=== PATIENT | female | born 1935 | race Two or more races ===

== ENCOUNTER 2019-09-13 15:16 | Emergency (ER) | payer MEDICARE, OTHER ==
[~2019-09-13] VITALS: Ht 157.5 cm; Wt 68.0 kg
[2019-09-13 16:02] LABS: Basophils # (auto) 0 10 ^3/uL (0-0.2); Basophils % (auto) 0.4 % (0.0-2.0); Eosinophils # (auto) 0.5 10 ^3/uL (0-0.8); Eosinophils % (auto) 6.3 % (0.0-7.0); Hematocrit 39.1 % (36.0-46.0); Lymphocytes # (auto) 2.5 10 ^3/uL (0.4-5.4); Lymphocytes % (auto) 32.5 % (10.0-50.0); Mean Corpuscular Hemoglobin 31.1 pg (28.0-32.0); Mean Corpuscular Hgb Conc. 33.2 g/dL (32.0-36.0); Mean Corpuscular Volume 93.9 fL (80.0-100.0); Monocytes # (auto) 0.7 10 ^3/uL (0-1.3); Monocytes % (auto) 9.5 % (0.0-12.0); Neutrophils % (auto) 51.3 % (37.0-80.0); Nucleated Red Blood Cells % 0.1 %; Platelet Count (auto) 275 10^3/uL (140-450); Red Blood Cells 4.17 10^6/uL (4.0-5.20); Red Cell Distribution Width 13.3 % (11.8-14.3); White Blood Cell 7.8 10^3/uL (4.4-10.8)
[2019-09-13 16:16] LABS: INR 1.09 (0.9-1.15); Partial Thromboplastin Time 28.2 sec (23.64-32.05)
[2019-09-13 16:38] LABS: Alanine Aminotransferase 21 U/L (13-56); Alkaline Phosphatase 170 U/L (45-117); Anion Gap 5 (5-15); Aspartate Aminotransferase 37 U/L (15-37); BUN/Creatinine Ratio 11.6; Blood Urea Nitrogen 15 mg/dL (7-18); Calcium 8.9 mg/dL (8.5-10.1); Carbon Dioxide 28 mmol/L (21-32); Chloride 105 mmol/L (98-107); GFR African American 51 mL/min; GFR Non-African American 42 mL/min; Glucose 127 mg/dL (74-106); Sodium 138 mmol/L (136-145)
[2019-09-13 16:39] LABS: Albumin 2.8 g/dL (3.4-5.0); Bilirubin, Total 0.6 mg/dL (0.2-1.0); CRP High Sensitivity 0.756 mg/dL (< 0.3); Lactate Dehydrogenase 458 U/L (84-246); Total Protein 7.3 g/dL (6.4-8.2)
[2019-09-13 18:37] LABS: Urine Bacteria MANY /hpf (None Seen); Urine Blood Negative /uL (Negative); Urine Hyaline Cast FEW /lpf (0 - 2); Urine Mucus FEW (None Seen); Urine Specific Gravity 1.016 (1.001-1.035); Urine WBC 118 /hpf (0 - 5)
[2019-09-13] MEDS ORDERED: cefTRIAXone 1GM/50ML D5W 50 ML IV ONE (19:00)
[2019-09-14 03:30] VITALS: BP 137/47
== END 2019-09-14 03:44 | disposition home or self-care (01) ==
LOC: ER 15:16 → EDBD 15:16 → ER 09-14 03:44
DX: E86.0 Dehydration (principal); Z20.828 Contact with and (suspected) exposure to other viral communicable diseases; F41.9 Anxiety disorder, unspecified; E44.0 Moderate protein-calorie malnutrition; R10.2 Pelvic and perineal pain; Z68.29 Body mass index [BMI] 29.0-29.9, adult
CPT/HCPCS: 36415; 71045; 72170; 80053; 81001; 82728; 83615; 83880; 84484; 85025; 85610; 85730; 86141; 96365; 99285; C9803; J0696; U0003

== ENCOUNTER 2021-03-31 16:47 | Inpatient (IN) | payer MEDICARE, OTHER ==
[~2021-03-31] VITALS: Ht 165.1 cm; Wt 52.0 kg
[2021-03-31 18:04] LABS: Basophils # (auto) 0 10 ^3/uL (0-0.2); Basophils % (auto) 0.3 % (0.0-2.0); Eosinophils # (auto) 0.8 10 ^3/uL (0-0.8); Eosinophils % (auto) 8.5 % (0.0-7.0); Hematocrit 39.5 % (36.0-46.0); Hemoglobin 13.2 g/dL (12.2-16.2); Lymphocytes # (auto) 2.6 10 ^3/uL (0.4-5.4); Lymphocytes % (auto) 27.9 % (10.0-50.0); Mean Corpuscular Hemoglobin 30.8 pg (28.0-32.0); Mean Corpuscular Hgb Conc. 33.5 g/dL (32.0-36.0); Monocytes # (auto) 0.7 10 ^3/uL (0-1.3); Monocytes % (auto) 7.7 % (0.0-12.0); Neutrophils # (auto) 5.3 10 ^3/uL (1.6-8.6); Neutrophils % (auto) 55.6 % (37.0-80.0); Red Cell Distribution Width 13.5 % (11.8-14.3); White Blood Cell 9.5 10^3/uL (4.4-10.8)
[2021-03-31 18:11] LABS: Albumin 3.4 g/dL (3.4-5.0); Calcium 9.8 mg/dL (8.5-10.1); Potassium 4.2 mmol/L (3.5-5.1)
[2021-03-31 18:16] LABS: BUN/Creatinine Ratio 16.5; Bilirubin, Total 0.6 mg/dL (0.2-1.0); Total Protein 8.5 g/dL (6.4-8.2)
[2021-04-01 14:01] LABS: Urine Bacteria MANY /hpf (None Seen); Urine Blood Negative /uL (Negative); Urine Mucus FEW (None Seen); Urine Specific Gravity 1.015 (1.001-1.035); Urine WBC 256 /hpf (0 - 5)
[2021-04-01 14:11] LABS: Amphetamine Screen, Urine NEGATIVE (NEGATIVE); Barbiturate Scree,Urine NEGATIVE (NEGATIVE); Benzodiazephine Screen, Urine NEGATIVE (NEGATIVE); Cannabinoid Screen, Urine NEGATIVE (NEGATIVE); Cocaine Screen, Urine NEGATIVE (NEGATIVE); Opiate Scree,Urine NEGATIVE (NEGATIVE); Phencyclidine Screen, Urine NEGATIVE (NEGATIVE)
[2021-04-01] MEDS ORDERED: cefTRIAXone 1GM/50ML D5W 50 ML IV ONE (18:15)
[2021-04-01] MEDS ORDERED: ONDANSETRON HCL 4 MG/2 ML VIAL IV PRN (20:45)
[2021-04-01 22:22] LABS: Calcium 9.2 mg/dL (8.5-10.1); Potassium 4.1 mmol/L (3.5-5.1)
[2021-04-01 22:28] LABS: BUN/Creatinine Ratio 16.1
[2021-04-02 00:34] VITALS: BP 138/60
[2021-04-02 00:47] VITALS: BP 130/60
[2021-04-02] MEDS ORDERED: INFLUENZA QUAD 2021-2022 0.5 ML SYRG IM ONE (01:00)
[2021-04-02] MEDS ORDERED: PNEUMOCOCCAL VACC POLYS 25 MCG/0.5 ML VIAL IM ONE (01:00)
[2021-04-02] MEDS ORDERED: LEVO25TA6 PO (01:01)
[2021-04-02] MEDS ORDERED: DULO20CA PO (01:01)
[2021-04-02] MEDS ORDERED: QUET25TA37 PO (01:01)
[2021-04-02] MEDS ORDERED: MULT-1058 PO (01:01)
[2021-04-02 04:50] VITALS: BP 140/62
[2021-04-02 08:12] LABS: Basophils # (auto) 0.1 10 ^3/uL (0-0.2); Basophils % (auto) 1.2 % (0.0-2.0); Eosinophils # (auto) 0.6 10 ^3/uL (0-0.8); Eosinophils % (auto) 6.1 % (0.0-7.0); Hematocrit 39.2 % (36.0-46.0); Hemoglobin 13.2 g/dL (12.2-16.2); Lymphocytes # (auto) 1.6 10 ^3/uL (0.4-5.4); Lymphocytes % (auto) 15.9 % (10.0-50.0); Mean Corpuscular Hemoglobin 30.8 pg (28.0-32.0); Mean Corpuscular Hgb Conc. 33.6 g/dL (32.0-36.0); Mean Corpuscular Volume 91.7 fL (80.0-100.0); Monocytes # (auto) 0.7 10 ^3/uL (0-1.3); Monocytes % (auto) 6.8 % (0.0-12.0); Neutrophils # (auto) 7.1 10 ^3/uL (1.6-8.6); Red Blood Cells 4.27 10^6/uL (4.0-5.20); Red Cell Distribution Width 13.7 % (11.8-14.3); White Blood Cell 10.1 10^3/uL (4.4-10.8)
[2021-04-02 08:30] VITALS: BP 134/58
[2021-04-02 08:32] LABS: Potassium 4.3 mmol/L (3.5-5.1)
[2021-04-02] MEDS: cefTRIAXone 1GM/50ML D5W 50 ML IV SCH (08:37)
[2021-04-02 08:50] LABS: BUN/Creatinine Ratio 18.4; Calcium 9.2 mg/dL (8.5-10.1)
[2021-04-02] MEDS ORDERED: LEVOTHYROXINE SODIUM 25 MCG TAB PO ONE (11:15)
[2021-04-02 22:58] VITALS: BP 139/67
[2021-04-03 05:29] VITALS: BP 129/60
[2021-04-03] MEDS ORDERED: LEVOTHYROXINE SODIUM 25 MCG TAB PO SCH (07:00)
[2021-04-03 07:54] VITALS: BP 126/62
[2021-04-03 08:30] VITALS: BP 126/62
[2021-04-03] MEDS: cefTRIAXone 1GM/50ML D5W 50 ML IV SCH (10:34)
[2021-04-03 11:50] VITALS: BP 122/61
[2021-04-03 17:00] VITALS: BP 123/60
[2021-04-03 22:00] VITALS: BP 123/55
[2021-04-04] VITALS (9 sets, daily range): BP systolic 120–136; BP diastolic 62–91
[2021-04-04] MEDS: LEVOTHYROXINE SODIUM 50 MCG TAB PO SCH (06:45)
[2021-04-04] MEDS: cefTRIAXone 1GM/50ML D5W 50 ML IV SCH (08:24)
[2021-04-04] MEDS ORDERED: NITR-87 PO (10:02)
[2021-04-05 05:00] VITALS: BP 135/61
[2021-04-05] MEDS: LEVOTHYROXINE SODIUM 50 MCG TAB PO SCH (06:37)
[2021-04-05] MEDS: cefTRIAXone 1GM/50ML D5W 50 ML IV SCH (08:32)
[2021-04-05 09:00] VITALS: BP 118/67
[2021-04-05] MEDS ORDERED: AZITTAB PO (12:41)
[2021-04-05] MEDS ORDERED: PRED10TA PO (12:41)
== END 2021-04-05 12:00 | DRG 871 ==
LOC: ER 16:47 → EDBD 16:47 → OVERFLOW 04-01 20:45 → CENTRAL 04-01 23:31 → EAST 04-04 17:25
PROVIDERS: ADMIT Nurse Practitioner; ATTEND Internal Medicine
DX: A41.89 Other specified sepsis (principal); U07.1 COVID-19; G93.41 Metabolic encephalopathy; N39.0 Urinary tract infection, site not specified; N17.9 Acute kidney failure, unspecified; R29.6 Repeated falls; F03.90 Unspecified dementia, unspecified severity, without behavioral disturbance, psychotic disturbance, mood disturbance, and anxiety; R09.02 Hypoxemia; E03.9 Hypothyroidism, unspecified; I10 Essential (primary) hypertension; Z90.710 Acquired absence of both cervix and uterus; Z88.8 Allergy status to other drugs, medicaments and biological substances
CPT/HCPCS: 36415; 70450; 71045; 80048; 80053; 80307; 81001; 82607; 84443; 84484; 85025; 87081; 87426; 93005; 96365; 97110; 97163; 97530; G0378; J0696

== ENCOUNTER 2021-06-29 21:27 | Inpatient (IN) | payer MEDICARE, BC ==
[~2021-06-29] VITALS: Ht 157.5 cm; Wt 54.0 kg
[~2021-06-29 21:27] MED LIST: AZITTAB PO; DULO20CA PO; LEVO25TA6 PO; MULT-1058 PO; NITR-87 PO; PRED10TA PO; QUET25TA37 PO
[2021-06-29 23:32] LABS: Basophils # (auto) 0.2 10 ^3/uL (0-0.2); Basophils % (auto) 2.8 % (0.0-2.0); Eosinophils # (auto) 0.4 10 ^3/uL (0-0.8); Eosinophils % (auto) 5.3 % (0.0-7.0); Hematocrit 39.4 % (36.0-46.0); Hemoglobin 13.7 g/dL (12.2-16.2); Lymphocytes # (auto) 2.6 10 ^3/uL (0.4-5.4); Lymphocytes % (auto) 35.5 % (10.0-50.0); Mean Corpuscular Hemoglobin 32.4 pg (28.0-32.0); Mean Corpuscular Hgb Conc. 34.7 g/dL (32.0-36.0); Mean Corpuscular Volume 93.4 fL (80.0-100.0); Monocytes # (auto) 0.8 10 ^3/uL (0-1.3); Monocytes % (auto) 10.7 % (0.0-12.0); Neutrophils # (auto) 3.4 10 ^3/uL (1.6-8.6); Neutrophils % (auto) 45.7 % (37.0-80.0); Nucleated Red Blood Cells % 0.1 %; Red Blood Cells 4.22 10^6/uL (4.0-5.20); Red Cell Distribution Width 15.6 % (11.8-14.3); White Blood Cell 7.4 10^3/uL (4.4-10.8)
[2021-06-29 23:53] LABS: Calcium 9.6 mg/dL (8.5-10.1); Potassium 4.2 mmol/L (3.5-5.1)
[2021-06-29 23:59] LABS: BUN/Creatinine Ratio 15.8; Bilirubin, Total 1.3 mg/dL (0.2-1.0); Total Protein 6.9 g/dL (6.4-8.2)
[2021-06-30 03:55] LABS: Urine Bacteria MANY /hpf (None Seen); Urine WBC 3077 /hpf (0 - 5); Urine WBC Clumps PRESENT /hpf (None Seen)
[2021-06-30 04:01] LABS: Urine Blood 3+ /uL (Negative)
[2021-06-30] MEDS ORDERED: cefTRIAXone 1GM/50ML D5W 50 ML IV ONE (05:15)
[2021-06-30] MEDS ORDERED: DOCUSATE SOD 100 MG CAP PO PRN (05:15)
[2021-06-30] MEDS: SODIUM CHLORIDE 0.9% 1,000 ML IV SCH (05:26)
[2021-06-30] MEDS: SODIUM CHLOR 0.9% PF (SALINE LOCK) 10ML VIAL/SYR IV SCH ×3 (05:27→22:00)
[2021-06-30] MEDS ORDERED: AZITHROMYCIN 500MG/ 250ML 250 ML IV ONE (06:15)
[2021-06-30 09:00] VITALS: BP 107/54
[2021-06-30 12:52] LABS: BUN/Creatinine Ratio 16.5; Potassium 4.4 mmol/L (3.5-5.1)
[2021-06-30 13:00] VITALS: BP 124/71
[2021-06-30 17:00] VITALS: BP 136/60
[2021-06-30 20:00] VITALS: BP 113/52
[2021-07-01 05:00] VITALS: BP 110/61
[2021-07-01] MEDS: SODIUM CHLORIDE 0.9% 1,000 ML IV SCH ×2 (05:46→14:58)
[2021-07-01] MEDS: SODIUM CHLOR 0.9% PF (SALINE LOCK) 10ML VIAL/SYR IV SCH ×3 (05:47→22:00)
[2021-07-01] MEDS: LEVOTHYROXINE SODIUM 25 MCG TAB PO SCH (06:37)
[2021-07-01] MEDS: LEVOTHYROXINE SODIUM 50 MCG TAB PO SCH (06:37)
[2021-07-01] MEDS: cefTRIAXone 1GM/50ML D5W 50 ML IV SCH (08:28)
[2021-07-01 09:00] VITALS: BP 134/58
[2021-07-01] MEDS: AZITHROMYCIN 500MG/ 250ML 250 ML IV SCH (10:02)
[2021-07-01 12:52] VITALS: BP 154/54
[2021-07-01 15:48] LABS: Free T3 1.73 pg/mL (2.3-4.2); Free T4 (Free Thyroxine) 1.48 ng/dL (0.89-1.76)
[2021-07-01 17:29] VITALS: BP 154/63
[2021-07-01] MEDS: Ensure HIGH Protein Chocolate 8oz Bottle PO SCH (18:00)
[2021-07-01 21:58] VITALS: BP 143/69
[2021-07-02 05:00] VITALS: BP 149/73
[2021-07-02] MEDS: LEVOTHYROXINE SODIUM 50 MCG TAB PO SCH (06:40)
[2021-07-02] MEDS: LEVOTHYROXINE SODIUM 25 MCG TAB PO SCH (06:40)
[2021-07-02] MEDS: SODIUM CHLOR 0.9% PF (SALINE LOCK) 10ML VIAL/SYR IV SCH ×3 (06:40→22:34)
[2021-07-02] MEDS: SODIUM CHLORIDE 0.9% 1,000 ML IV SCH (08:42)
[2021-07-02] MEDS: cefTRIAXone 1GM/50ML D5W 50 ML IV SCH (08:43)
[2021-07-02] MEDS: Ensure HIGH Protein Chocolate 8oz Bottle PO SCH (08:43)
[2021-07-02 08:51] VITALS: BP 158/62
[2021-07-02] MEDS ORDERED: hydrALAZINE HCL 10 MG TAB PO PRN (09:30)
[2021-07-02] MEDS: AZITHROMYCIN 500MG/ 250ML 250 ML IV SCH (10:18)
[2021-07-02] MEDS: DULoxetine HCL 30 MG CAP PO SCH (10:18)
[2021-07-02 13:00] VITALS: BP 117/53
[2021-07-02 16:26] VITALS: BP 120/63
[2021-07-02] MEDS: Juven Fruit Punch Powder PACKET 28.8gm PO SCH (20:00)
[2021-07-02 21:35] VITALS: BP 135/60
[2021-07-03] MEDS: SODIUM CHLORIDE 0.9% 1,000 ML IV SCH ×2 (02:29→16:35)
[2021-07-03 04:40] VITALS: BP 130/55
[2021-07-03] MEDS: SODIUM CHLOR 0.9% PF (SALINE LOCK) 10ML VIAL/SYR IV SCH ×2 (06:19→15:45)
[2021-07-03] MEDS ORDERED: LEVOTHYROXINE SODIUM 88 MCG TAB PO SCH (07:00)
[2021-07-03 08:00] VITALS: BP 114/75
[2021-07-03] MEDS: Juven Fruit Punch Powder PACKET 28.8gm PO SCH ×2 (08:00→17:55)
[2021-07-03 09:00] VITALS: BP 153/62
[2021-07-03] MEDS: cefTRIAXone 1GM/50ML D5W 50 ML IV SCH (09:49)
[2021-07-03] MEDS: DULoxetine HCL 30 MG CAP PO SCH ×2 (09:49→09:53)
[2021-07-03 10:51] LABS: Basophils # (auto) 0 10 ^3/uL (0-0.2); Basophils % (auto) 0.4 % (0.0-2.0); Eosinophils # (auto) 0.4 10 ^3/uL (0-0.8); Eosinophils % (auto) 6.7 % (0.0-7.0); Hematocrit 40.3 % (36.0-46.0); Hemoglobin 13.8 g/dL (12.2-16.2); Lymphocytes # (auto) 2.4 10 ^3/uL (0.4-5.4); Lymphocytes % (auto) 35.9 % (10.0-50.0); Mean Corpuscular Hemoglobin 31.8 pg (28.0-32.0); Mean Corpuscular Hgb Conc. 34.2 g/dL (32.0-36.0); Mean Corpuscular Volume 93.1 fL (80.0-100.0); Monocytes # (auto) 0.5 10 ^3/uL (0-1.3); Monocytes % (auto) 7.1 % (0.0-12.0); Neutrophils # (auto) 3.4 10 ^3/uL (1.6-8.6); Neutrophils % (auto) 49.9 % (37.0-80.0); Nucleated Red Blood Cells % 0.2 %; Red Blood Cells 4.33 10^6/uL (4.0-5.20); Red Cell Distribution Width 15.1 % (11.8-14.3); White Blood Cell 6.7 10^3/uL (4.4-10.8)
[2021-07-03] MEDS: AZITHROMYCIN 500MG/ 250ML 250 ML IV SCH (11:27)
[2021-07-03 11:51] LABS: BUN/Creatinine Ratio 8.2; Calcium 9.3 mg/dL (8.5-10.1); Potassium 3.5 mmol/L (3.5-5.1)
[2021-07-03 12:34] VITALS: BP 114/75
[2021-07-03] MEDS ORDERED: CEFD300C2 PO (14:33)
[2021-07-03] MEDS ORDERED: LEV88T PO (16:44)
[2021-07-03 17:00] VITALS: BP 134/62
[2021-07-03 17:08] VITALS: BP 158/62
== END 2021-07-03 19:00 | disposition home health service (06) | DRG 689 ==
LOC: ER 21:27 → EDBD 21:27 → OVERFLOW 06-30 05:06 → WEST WING 06-30 08:38
PROVIDERS: ADMIT Internal Medicine; ATTEND Internal Medicine
DX: N39.0 Urinary tract infection, site not specified (principal); G93.41 Metabolic encephalopathy; F03.90 Unspecified dementia, unspecified severity, without behavioral disturbance, psychotic disturbance, mood disturbance, and anxiety; E03.9 Hypothyroidism, unspecified; I10 Essential (primary) hypertension; Z20.822 Contact with and (suspected) exposure to COVID-19; B96.20 Unspecified Escherichia coli [E. coli] as the cause of diseases classified elsewhere; Z87.440 Personal history of urinary (tract) infections; Z90.710 Acquired absence of both cervix and uterus; Z88.1 Allergy status to other antibiotic agents; Z88.5 Allergy status to narcotic agent; Z88.8 Allergy status to other drugs, medicaments and biological substances
CPT/HCPCS: 36415; 70450; 71045; 76705; 80048; 80053; 81001; 83605; 83880; 84439; 84443; 84481; 84484; 85025; 87040; 87077; 87081; 87086; 87088; 87186; 93005; 96365; 96366; 96368; 97110; 97116; 97163; 97530; G0378; J0696

== ENCOUNTER 2021-07-24 15:45 | Inpatient (IN) | payer OTHER, MEDICARE, BC ==
[~2021-07-24] VITALS: Ht 160 cm; Wt 52.9 kg
[~2021-07-24 15:45] MED LIST changes: -AZITTAB PO; +CEFD300C2 PO; +LEV88T PO; -LEVO25TA6 PO; -NITR-87 PO; -PRED10TA PO
[2021-07-24] MEDS ORDERED: SODIUM CHLORIDE 0.9% 1,000 ML IV ONE (17:15)
[2021-07-24] MEDS ORDERED: SODIUM CHLORIDE 0.9% 1,000 ML IVB ONE (17:15)
[2021-07-24 18:02] LABS: Basophils # (auto) 0.1 10 ^3/uL (0-0.2); Basophils % (auto) 1.5 % (0.0-2.0); Eosinophils # (auto) 0.3 10 ^3/uL (0-0.8); Eosinophils % (auto) 4.3 % (0.0-7.0); Hematocrit 41.8 % (36.0-46.0); Hemoglobin 13.9 g/dL (12.2-16.2); Lymphocytes # (auto) 3.5 10 ^3/uL (0.4-5.4); Lymphocytes % (auto) 47.3 % (10.0-50.0); Mean Corpuscular Hemoglobin 32.1 pg (28.0-32.0); Mean Corpuscular Hgb Conc. 33.3 g/dL (32.0-36.0); Mean Corpuscular Volume 96.3 fL (80.0-100.0); Monocytes # (auto) 0.7 10 ^3/uL (0-1.3); Monocytes % (auto) 9.4 % (0.0-12.0); Neutrophils # (auto) 2.8 10 ^3/uL (1.6-8.6); Neutrophils % (auto) 37.5 % (37.0-80.0); Nucleated Red Blood Cells % 0.2 %; Red Blood Cells 4.34 10^6/uL (4.0-5.20); Red Cell Distribution Width 14.7 % (11.8-14.3); White Blood Cell 7.4 10^3/uL (4.4-10.8)
[2021-07-24 18:18] LABS: Albumin 2.8 g/dL (3.4-5.0); Calcium 10.3 mg/dL (8.5-10.1); Magnesium 2.5 mg/dL (1.6-2.6)
[2021-07-24 18:20] LABS: BUN/Creatinine Ratio 8.7
[2021-07-24 18:22] LABS: Bilirubin, Total 0.7 mg/dL (0.2-1.0); Total Protein 6.9 g/dL (6.4-8.2)
[2021-07-24 18:25] LABS: Potassium 5.8 mmol/L (3.5-5.1)
[2021-07-24 18:40] LABS: Urine Bacteria MANY /hpf (None Seen); Urine Blood Negative /uL (Negative); Urine Budding Yeast MANY /hpf (None Seen); Urine Mucus FEW (None Seen); Urine WBC 347 /hpf (0 - 5); Urine WBC Clumps PRESENT /hpf (None Seen)
[2021-07-24] MEDS ORDERED: cefTRIAXone SOD 1,000 MG VL IV ONE (19:15)
[2021-07-24 19:44] LABS: BUN/Creatinine Ratio 9.4; Potassium 4.7 mmol/L (3.5-5.1)
[2021-07-24] MEDS ORDERED: ONDANSETRON HCL 4 MG/2 ML VIAL IV PRN (22:30)
[2021-07-24] MEDS ORDERED: DOCUSATE SOD 100 MG CAP PO PRN (22:30)
[2021-07-24] MEDS ORDERED: IBUPROFEN 100MG/5ML ORAL SUSP 100 MG/5 ML UD PO PRN (22:30)
[2021-07-24] MEDS ORDERED: NITROGLYCERIN 0.4 MG SL TAB SL PRN (23:45)
[2021-07-24] MEDS ORDERED: MORPHINE SULFATE INJECTION 2 MG/ML SYRG IV PRN (23:45)
[2021-07-25 05:00] VITALS: BP 138/70
[2021-07-25] MEDS: SODIUM CHLOR 0.9% PF (SALINE LOCK) 10ML VIAL/SYR IV SCH ×3 (06:44→21:52)
[2021-07-25 07:01] VITALS: BP 134/72
[2021-07-25 08:12] LABS: Basophils # (auto) 0.1 10 ^3/uL (0-0.2); Basophils % (auto) 1.9 % (0.0-2.0); Eosinophils # (auto) 0.3 10 ^3/uL (0-0.8); Eosinophils % (auto) 4.1 % (0.0-7.0); Lymphocytes # (auto) 2.4 10 ^3/uL (0.4-5.4); Lymphocytes % (auto) 31.3 % (10.0-50.0); Mean Corpuscular Hemoglobin 32.5 pg (28.0-32.0); Mean Corpuscular Hgb Conc. 34.1 g/dL (32.0-36.0); Mean Corpuscular Volume 95.2 fL (80.0-100.0); Monocytes # (auto) 0.7 10 ^3/uL (0-1.3); Monocytes % (auto) 9.6 % (0.0-12.0); Neutrophils % (auto) 53.1 % (37.0-80.0); Nucleated Red Blood Cells % 0.1 %; Red Blood Cells 3.99 10^6/uL (4.0-5.20); Red Cell Distribution Width 14.6 % (11.8-14.3); White Blood Cell 7.6 10^3/uL (4.4-10.8)
[2021-07-25 08:31] LABS: Albumin 2.4 g/dL (3.4-5.0); Calcium 8.6 mg/dL (8.5-10.1); Potassium 4.4 mmol/L (3.5-5.1)
[2021-07-25 08:35] LABS: BUN/Creatinine Ratio 9.2; Bilirubin, Total 0.6 mg/dL (0.2-1.0); Total Protein 6.2 g/dL (6.4-8.2)
[2021-07-25 09:00] VITALS: BP 110/54
[2021-07-25] MEDS ORDERED: ASCORBIC ACID 500 MG TAB PO SCH (10:00)
[2021-07-25] MEDS ORDERED: ZINC SULFATE 220mg CAP or TAB PO SCH (10:00)
[2021-07-25] MEDS: MULTIPLE VITAMIN TAB PO SCH (10:20)
[2021-07-25] MEDS: cefTRIAXone 1GM/50ML D5W 50 ML IV SCH (10:20)
[2021-07-25] MEDS: FAMOTIDINE (10MG/ML) 2ML VL IV SCH (10:21)
[2021-07-25 13:00] VITALS: BP 128/71
[2021-07-25 17:00] VITALS: BP 132/55
[2021-07-25] MEDS: D5W/SOD CHLO 0.9% 1,000 ML IV SCH (17:51)
[2021-07-25] MEDS ORDERED: FUROSEMIDE 20 MG/2 ML VIAL IV SCH (18:00)
[2021-07-25] MEDS: CARVEDILOL 3.125 MG TAB PO SCH (21:53)
[2021-07-25 22:00] VITALS: BP 119/62
[2021-07-26 05:00] VITALS: BP 131/75
[2021-07-26] MEDS: SODIUM CHLOR 0.9% PF (SALINE LOCK) 10ML VIAL/SYR IV SCH ×3 (06:48→22:00)
[2021-07-26 09:00] VITALS: BP 132/55
[2021-07-26] MEDS: cefTRIAXone 1GM/50ML D5W 50 ML IV SCH (09:24)
[2021-07-26] MEDS: MULTIPLE VITAMIN TAB PO SCH (09:25)
[2021-07-26] MEDS: FAMOTIDINE (10MG/ML) 2ML VL IV SCH (09:25)
[2021-07-26] MEDS: CARVEDILOL 3.125 MG TAB PO SCH ×2 (09:25→22:00)
[2021-07-26] MEDS: D5W/SOD CHLO 0.9% 1,000 ML IV SCH (11:45)
[2021-07-26 13:00] VITALS: BP 158/92
[2021-07-26 17:00] VITALS: BP 165/80
[2021-07-26] MEDS: Ensure HIGH Protein Chocolate 8oz Bottle PO SCH (18:06)
[2021-07-26] MEDS ORDERED: hydrALAZINE HCL 20 MG/ML VL IV PRN (18:45)
[2021-07-26 22:00] VITALS: BP 149/55
[2021-07-27] MEDS: SODIUM CHLOR 0.9% PF (SALINE LOCK) 10ML VIAL/SYR IV SCH ×2 (05:35→14:00)
[2021-07-27] MEDS: Ensure HIGH Protein Chocolate 8oz Bottle PO SCH ×2 (08:00→12:00)
[2021-07-27 09:00] VITALS: BP 112/34
[2021-07-27] MEDS: cefTRIAXone 1GM/50ML D5W 50 ML IV SCH (09:33)
[2021-07-27] MEDS: CARVEDILOL 3.125 MG TAB PO SCH (09:33)
[2021-07-27] MEDS: MULTIPLE VITAMIN TAB PO SCH (09:34)
[2021-07-27] MEDS ORDERED: LEVO500T31 PO (11:07)
== END 2021-07-27 14:18 | disposition hospice, home (50) | DRG 871 ==
LOC: ER 15:45 → EDBD 15:45 → TELE 23:37 → TELE-WESTW 07-25 04:04
PROVIDERS: ADMIT Nurse Practitioner Family; ATTEND Internal Medicine
DX: A41.9 Sepsis, unspecified organism (principal); G93.41 Metabolic encephalopathy; I50.31 Acute diastolic (congestive) heart failure; N17.0 Acute kidney failure with tubular necrosis; N39.0 Urinary tract infection, site not specified; R62.7 Adult failure to thrive; G30.9 Alzheimer's disease, unspecified; R63.0 Anorexia; E87.5 Hyperkalemia; E86.0 Dehydration; F02.80 Dementia in other diseases classified elsewhere, unspecified severity, without behavioral disturbance, psychotic disturbance, mood disturbance, and anxiety; E11.9 Type 2 diabetes mellitus without complications; Z20.822 Contact with and (suspected) exposure to COVID-19; Z68.20 Body mass index [BMI] 20.0-20.9, adult; E03.9 Hypothyroidism, unspecified; I95.9 Hypotension, unspecified; I11.0 Hypertensive heart disease with heart failure; Z66 Do not resuscitate; Z95.0 Presence of cardiac pacemaker; Z90.710 Acquired absence of both cervix and uterus; Z90.49 Acquired absence of other specified parts of digestive tract; Z79.4 Long term (current) use of insulin; Z88.1 Allergy status to other antibiotic agents; Z88.5 Allergy status to narcotic agent; Z88.8 Allergy status to other drugs, medicaments and biological substances
CPT/HCPCS: 36415; 71045; 74176; 80048; 80053; 81001; 83605; 83690; 83735; 83880; 84443; 85025; 87081; 87086; 87088; 87186; 93005; 93306; 96361; 96374; G0378; J0696; J2405; J3490